=== PATIENT | female | born 1945 | race African-American/Black ===

== ENCOUNTER 2019-10-01 08:30 | Outpatient (CLI) | payer MEDICARE, SELFPAY ==
--- NOTE | ~2019-10-01 | MM_ITS ---
EXAMINATION: MM screening elisabet BI w maksim HISTORY: Screening mammogram TECHNIQUE: Craniocaudal and mediolateral oblique 3-D tomosynthesis images were obtained and synthetic 2-D images were generated. CAD analysis was submitted and interpreted. COMPARISON: , 03/30/2015, 07/03/2011 bilateral digital screening mammogram examinations BREAST PARENCHYMAL COMPOSITION: There are scattered areas of fibroglandular density.... FINDINGS: There is no evidence of suspicious mass, calcification, or architectural distortion to sugg est malignancy in either breast. There has been no suspicious interval change. IMPRESSION: 1. No mammographic evidence of malignancy. 2. Recommend routine screening mammography in one year. BI-RADS Category 1: Negative Reviewed, dictated and finalized at location A.
--- NOTE | ~2019-10-01 | DEXA_ITS ---
Bone Density Report Name: Halle Meyers Age: 73 Sex: Female Ethnicity: Black Date of : 1945 Indication: postmenopausal; height loss; prior fracture; Referring Provider: Shantal, Regina Study: Bone densitometry was performed. Exam Date: October 01, 2019 Accession number: [id number] Bone Density: Region BMD T-score Z-score Classification AP Spine (L1-L4) 0.966 -0.7 0.9 Normal Femoral Neck (Left) 0.531 -2.9 -1.4 Osteoporosis Total Hip (Left) 0.932 -0.1 0.6 Normal Total Hip Bilateral Avg 0.885 -0.5 0.3 Normal Femoral Neck (Right) 0.621 -2.1 -0.8 Osteopenia Total Hip (Right) 0.837 -0.9 0.0 Normal World Health Organization criteria for BMD impression classify patients as: Normal (T-score at or above -1.0), Osteopenia (T-score between -1.0 and -2.5), or Osteoporosis (T-score at or below -2.5). 10-year Fracture Risk: FRAX not reported because: Some T-score for Spine Total or Hip Total or Femoral Neck at or below -2.5 Previous Exams: Region Exam Age BMD T-score BMD Change BMD Change Date g/cm2 vs Baseline vs Previous AP Spine(L1-L4) 10/01/2019 73 0.966 -0.7 0.036(3.9%)# 0.010(1.0%) 03/30/2015 69 0.956 -0.8 0.027(2.9%)# 0.026(2.8%)# 07/03/2011 65 0.930 -1.1 0.001(0.1%)# -0.037(-3.9%)# 01/06/2009 63 0.968 -0.7 0.038(4.1%)* 0.038(4.1%)* 03/03/2003 57 0.930 -1.1 Total Hip(Left) 10/01/2019 73 0.932 -0.1 0.059(6.7%)# 0.069(8.0%)* 03/30/2015 69 0.863 -0.6 -0.010(-1.2%)# -0.110(-11.3%) 07/03/2011 65 0.973 0.3 0.100(11.5%)# 0.086(9.7%)# 01/06/2009 63 0.887 -0.4 0.014(1.6%) 0.014(1.6%) 03/03/2003 57 0.873 -0.6 Total Hip(Right) 10/01/2019 73 0.837 -0.9 -0.068(-7.5%)# -0.035(-4.0%)* 03/30/2015 69 0.872 -0.6 -0.033(-3.7%)# -0.077(-8.1%)# 07/03/2011 65 0.948 0.1 0.043(4.8%)# 0.058(6.6%)# 01/06/2009 63 0.890 -0.4 -0.015(-1.7%) -0.015(-1.7%) 03/03/2003 57 0.905 -0.3 *Denotes significance at 95% confidence level, LSC for AP Spine = 0.022 g/cm2, LSC for Total Hip = 0.027 g/cm2 Clinical Information Provided by Patient: Has had a low trauma fracture Has used the following medications: Vitamin D Patient maximum height was 62 Menopause Age: 50 Drinks caffeinated beverages Onset of menses at age 12 Number of children 2 Impression: The patient has established osteoporosis, based on the Left Femoral Neck T-score and the existence of a prior fract
== END 2019-10-01 08:31 | disposition home or self-care (01) ==
LOC: ANHIMG 08:36
PROVIDERS: PCP Registered Nurse; Visit Provider Registered Nurse
DX: Z12.31 Encounter for screening mammogram for malignant neoplasm of breast (principal); Z78.0 Asymptomatic menopausal state; M81.0 Age-related osteoporosis without current pathological fracture; M85.851 Other specified disorders of bone density and structure, right thigh
CPT/HCPCS: 77063; 77067; 77080